=== PATIENT | female | born 1985 | race Caucasian/White ===

== ENCOUNTER 2017-06-19 06:05 | Emergency (ER) | payer OTHER ==
[~2017-06-19] VITALS: Ht 152.4 cm; Wt 58.6 kg
[2017-06-19] MEDS ORDERED: METOCLOPRAMIDE 5 MG/ML, 2ML ONE (06:29)
[2017-06-19] MEDS ORDERED: KETOROLAC 30 MG/1 ML ONE (06:29)
[2017-06-19] MEDS ORDERED: DIPHENHYDRAMINE 50 MG/ML, 1ML ONE (06:29)
[2017-06-19] MEDS ORDERED: SODIUM CHLORIDE 0.9% 1,000ML IVBOLUS ONE (06:30)
[2017-06-19] MEDS ORDERED: KETOROLAC 30 MG/1 ML IVPush ONE (06:30)
[2017-06-19] MEDS ORDERED: SODIUM CHLORIDE FLUSH 10ML SYR IVF ONE (06:30)
[2017-06-19] MEDS ORDERED: METOCLOPRAMIDE 5 MG/ML, 2ML IVPush ONE (06:30)
[2017-06-19] MEDS ORDERED: DIPHENHYDRAMINE 50 MG/ML, 1ML IVPush ONE (06:30)
[2017-06-19 09:04] VITALS: BP 129/77
== END 2017-06-19 09:06 | disposition home or self-care (01) ==
LOC: ED 06:57
DX: R51 Headache (principal); R11.2 Nausea with vomiting, unspecified; R20.0 Anesthesia of skin
CPT/HCPCS: 96361; 96374; 96375; 99284; J1200; J1885; J2765; J7030